=== PATIENT | male | born 1985 | race African-American/Black ===

== ENCOUNTER 2021-10-20 16:57 | Emergency (ER) | payer MEDICAID, OTHER ==
[~2021-10-20] VITALS: Ht 170.2 cm; Wt 68.1 kg
[2021-10-20] MEDS ORDERED: SODIUM CHLORIDE 0.9% 1,000 ML IV ONE (18:30)
[2021-10-20] MEDS ORDERED: METOCLOPRAMIDE HCL 5MG/ml INJ 2ml VIAL IV ONE (18:30)
[2021-10-20] MEDS ORDERED: MORPHINE SULFATE 4 MG/ML SYR/VIAL IV ONE (18:30)
[2021-10-20 19:53] LABS: Basophils # (auto) 0.1 10 ^3/uL (0-0.2); Basophils % (auto) 0.5 % (0.0-2.0); Eosinophils # (auto) 0 10 ^3/uL (0-0.8); Hemoglobin 10.8 g/dL (13.5-17.5); Lymphocytes # (auto) 0.5 10 ^3/uL (0.4-5.4); Lymphocytes % (auto) 4.2 % (10.0-50.0); Mean Corpuscular Hemoglobin 26.6 pg (28.0-32.0); Mean Corpuscular Hgb Conc. 31.8 g/dL (32.0-36.0); Mean Corpuscular Volume 83.7 fL (80.0-100.0); Monocytes # (auto) 0.3 10 ^3/uL (0-1.3); Monocytes % (auto) 2.7 % (0.0-12.0); Neutrophils # (auto) 10.7 10 ^3/uL (1.6-8.6); Neutrophils % (auto) 92.6 % (37.0-80.0); Red Blood Cells 4.06 10^6/uL (4.5-5.90); Red Cell Distribution Width 16.4 % (11.8-14.3); White Blood Cell 11.6 10^3/uL (4.4-10.8)
[2021-10-20 19:54] LABS: Potassium 3.2 mmol/L (3.5-5.1)
[2021-10-20 19:59] LABS: Albumin 2.9 g/dL (3.4-5.0); BUN/Creatinine Ratio 15.4; Bilirubin, Total 0.3 mg/dL (0.2-1.0); Calcium 8.9 mg/dL (8.5-10.1); Total Protein 9.9 g/dL (6.4-8.2)
[2021-10-20] MEDS ORDERED: ONDANSETRON HCL 4 MG/2 ML VIAL IV ONE (20:15)
[2021-10-20] MEDS ORDERED: HYDROmorphone HCL 2 MG/ML VL/or syr IV ONE (20:30)
[2021-10-20] MEDS ORDERED: HYDR-4798 PO (21:04)
[2021-10-20] MEDS ORDERED: ONDA-144 PO (21:04)
[2021-10-20 21:24] VITALS: BP 138/89
== END 2021-10-20 22:57 | disposition home or self-care (01) ==
LOC: EDBD 16:57 → ER 17:01
DX: R10.84 Generalized abdominal pain (principal); R11.2 Nausea with vomiting, unspecified; R53.1 Weakness
CPT/HCPCS: 36415; 74176; 80053; 83690; 85025; 96361; 96374; 96375; 99285; J1170; J2270; J2405; J2765; J7030

== ENCOUNTER 2022-02-10 11:02 | Emergency (ER) | payer SELFPAY ==
[~2022-02-10] VITALS: Ht 188 cm; Wt 82.0 kg
[~2022-02-10 11:02] MED LIST: HYDR-4798 PO; ONDA-144 PO
[2022-02-10] MEDS ORDERED: SODIUM CHLORIDE 0.9% 1,000 ML IV ONE (13:15)
[2022-02-10] MEDS ORDERED: METOCLOPRAMIDE HCL 5MG/ml INJ 2ml VIAL IV ONE (13:15)
[2022-02-10] MEDS ORDERED: KETOROLAC TROMETH 30 MG/ML 1ML VIAL IV ONE (13:15)
[2022-02-10 13:41] LABS: Basophils # (auto) 0.1 10 ^3/uL (0-0.2); Basophils % (auto) 0.8 % (0.0-2.0); Eosinophils # (auto) 0.1 10 ^3/uL (0-0.8); Hematocrit 39.5 % (41.0-53.0); Hemoglobin 13.1 g/dL (13.5-17.5); Lymphocytes # (auto) 1.2 10 ^3/uL (0.4-5.4); Lymphocytes % (auto) 17.1 % (10.0-50.0); Mean Corpuscular Hgb Conc. 33.2 g/dL (32.0-36.0); Mean Corpuscular Volume 84.3 fL (80.0-100.0); Monocytes # (auto) 0.6 10 ^3/uL (0-1.3); Monocytes % (auto) 8.2 % (0.0-12.0); Neutrophils # (auto) 5.1 10 ^3/uL (1.6-8.6); Neutrophils % (auto) 72.9 % (37.0-80.0); Nucleated Red Blood Cells % 0.1 %; Red Blood Cells 4.68 10^6/uL (4.5-5.90)
[2022-02-10 13:55] LABS: Albumin 3.3 g/dL (3.4-5.0); Calcium 9.3 mg/dL (8.5-10.1); Magnesium 2.1 mg/dL (1.6-2.6); Potassium 3.2 mmol/L (3.5-5.1)
[2022-02-10 13:59] LABS: BUN/Creatinine Ratio 14.5; Bilirubin, Total 0.3 mg/dL (0.2-1.0)
[2022-02-10] MEDS ORDERED: POTASSIUM EFFERVESENT TAB 25 MEQ PO ONE (15:15)
[2022-02-10] MEDS ORDERED: cefTRIAXone W LIDOCAINE 1 GM IM IM ONE (17:30)
[2022-02-10] MEDS ORDERED: OXYC20TA69 PO (18:11)
[2022-02-10] MEDS ORDERED: CEFD300C2 PO (18:11)
[2022-02-10] MEDS ORDERED: BACI1OIN45 EX (18:11)
[2022-02-10] MEDS ORDERED: oxyCODONE HCL 5MG TAB PO PRN (18:15)
[2022-02-10] MEDS ORDERED: cefTRIAXone SOD 1,000 MG VL ONE (18:48)
[2022-02-10] MEDS ORDERED: LIDOCAINE 1% HCL (LOCAL ANESTH.) INJ 20ML MDV ONE (18:49)
[2022-02-10] MEDS ORDERED: oxyCODONE ER 20 MG TAB PO ONE (19:09)
[2022-02-10 19:15] VITALS: BP 135/85
== END 2022-02-10 19:15 | disposition home or self-care (01) ==
LOC: EDBD 11:02 → EDUNIT# 11:02 → ER 11:02
DX: S62.612B Displaced fracture of proximal phalanx of right middle finger, initial encounter for open fracture (principal); M65.88 Other synovitis and tenosynovitis, other site; M86.8X8 Other osteomyelitis, other site; G82.20 Paraplegia, unspecified; E46 Unspecified protein-calorie malnutrition; Z68.23 Body mass index [BMI] 23.0-23.9, adult; Z79.899 Other long term (current) drug therapy; X58.XXXA Exposure to other specified factors, initial encounter; Y93.89 Activity, other specified; Y92.89 Other specified places as the place of occurrence of the external cause; Y99.8 Other external cause status
CPT/HCPCS: 36415; 73200; 80053; 83735; 85025; 96372; 99284; J0696; J2001

== ENCOUNTER 2022-02-11 10:38 | Emergency (ER) | payer MEDICAID, OTHER ==
[~2022-02-11] VITALS: Ht 167.6 cm; Wt 84.0 kg
[~2022-02-11 10:38] MED LIST changes: +BACI1OIN45 EX; +CEFD300C2 PO; +OXYC20TA69 PO
[2022-02-11] MEDS ORDERED: HYDROmorphone HCL 2 MG/ML VL/or syr IV ONE (11:45)
[2022-02-11] MEDS ORDERED: METOCLOPRAMIDE HCL 5MG/ml INJ 2ml VIAL IV ONE (11:45)
[2022-02-11] MEDS ORDERED: SODIUM CHLORIDE 0.9% 500 ML IV ONE (11:45)
[2022-02-11] MEDS ORDERED: ceFAZolin 1GM/50ML 100 ML IV ONE (15:00)
[2022-02-11] MEDS ORDERED: OXYCODONE W/ ACETAMINOPHEN 5/325MG TABLET PO ONE (18:45)
[2022-02-11 19:52] VITALS: BP 131/88
== END 2022-02-11 20:30 | disposition short-term general hospital (02) ==
LOC: EDBD 10:38 → ER 10:38
DX: S63.283A Dislocation of proximal interphalangeal joint of left middle finger, initial encounter (principal); S63.631A Sprain of interphalangeal joint of left index finger, initial encounter; S63.613A Unspecified sprain of left middle finger, initial encounter; X08.8XXA Exposure to other specified smoke, fire and flames, initial encounter; Y93.89 Activity, other specified; Y92.89 Other specified places as the place of occurrence of the external cause; Y99.8 Other external cause status
CPT/HCPCS: 96361; 96365; 96375; 99285; J0690; J1170; J2765; J7040